=== PATIENT | male | born 1950 | race Caucasian/White ===

== ENCOUNTER 2024-12-20 10:21 | Emergency (ER) | payer MEDICARE, OTHER ==
[2024-12-20] MEDS ORDERED: Sodium Chloride 0.9% 10 ML Syringe FLUSH PRN (10:27)
[2024-12-20 10:41] LABS: BASOPHILS ABSOLUTE AUTO 0.03 10^3/uL (0.00-0.10); BASOPHILS PERCENT AUTO 0.6 % (0.0-1.0); EOSINOPHILS ABSOLUTE AUTO 0.02 10^3/uL (0.10-0.30); EOSINOPHILS PERCENT AUTO 0.4 % (1.0-3.0); IMMATURE GRAN ABSOLUTE AUTO 0.01 10^3/uL (0.00-0.04); IMMATURE GRAN PERCENT AUTO 0.2 % (0.0-0.4); LYMPHOCYTES ABSOLUTE AUTO 0.68 10^3/uL (1.00-4.00); LYMPHOCYTES PERCENT AUTO 13.8 % (20.0-40.0); MEAN PLATELET VOLUME 9.3 fL (7.4-10.4); MONOCYTES ABSOLUTE AUTO 0.37 10^3/uL (0.10-0.80); MONOCYTES PERCENT AUTO 7.5 % (2.0-8.0); NEUTROPHILS ABSOLUTE AUTO 3.81 10^3/uL (2.50-7.00); NEUTROPHILS PERCENT AUTO 77.5 % (50.0-70.0); PLATELET COUNT,PLT 164 10^3/uL (150-400); RED BLOOD CELL COUNT 4.48 10^6/uL (4.50-6.00); RED CELL DISTRIBUTION WIDTH 12.0 % (11.5-14.5); WHITE BLOOD CELL COUNT,WBC 4.92 10^3/uL (5.00-10.00)
[2024-12-20 11:04] LABS: ALANINE AMINOTRANSFERASE,ALT 24.0 U/L (14-63); ASPARTATE AMNIOTRANSFERASE,AST 25.0 U/L (15-37); BILIRUBIN TOTAL 0.7 mg/dL (0.2-1.0); BLOOD UREA NITROGEN,BUN 19.0 mg/dL (7-18); CARBON DIOXIDE,CO2 29.7 mmol/L (21.0-32.0); CHLORIDE,CL 102.0 mmol/L (98-107); CREATININE 0.96 mg/dL (0.51-1.17); EST CRCL DRUG DOSING (CG) 72.99 mL/min; GLUCOSE RANDOM 106.0 mg/dL (70-140); POTASSIUM,K 4.7 mmol/L (3.5-5.1); PROTEIN TOTAL,TP 7.0 g/dL (6.4-8.2); SODIUM,NA 139.0 mmol/L (136-145)
[2024-12-20 11:06] LABS: ESTIMATED GFR 83.0 mL/min (>=60)
[2024-12-20 11:26] LABS: INR 1.0 (0.9-1.1); PTT,PARTIAL THROMBOPLSTIN TIME 25.4 SEC (21.6-32.4)
[2024-12-20] MEDS: Iopamidol 755 Mg/ML 100 ML Bottle IV ONE (12:52)
[2024-12-20 15:17] VITALS: BP 150/70; PULSE 55
== END 2024-12-20 15:12 | disposition home or self-care (01) ==
LOC: KA.ED 10:21
DX: H53.9 Unspecified visual disturbance (principal); I10 Essential (primary) hypertension; Z79.899 Other long term (current) drug therapy
CPT/HCPCS: 36415; 70450; 70496; 70498; 80053; 84484; 85025; 85610; 85730; 93005; 93010; 99284; 99285; A9270-GY; Q9967